=== PATIENT | male | born 1995 | race Caucasian/White ===

== ENCOUNTER 2019-06-13 13:07 | Emergency (ER) | payer BC ==
--- NOTE | 2019-06-13 14:11 | UC ---
Respiratory Complaint HPI - HPI Summary HPI Summary: 23 yo male presents requesting COVID testing. 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 Pt was last with this individual on a bus on 06/07. Currently pt has some sneezing and his chest feels tight, but has no other symptoms. Nothing OTC for symptoms. Denies fever, chills, sinus symptoms, sore throat, SOB, chest pain, abdominal pain, n/v. Does not smoke. - History of Current Complaint Stated Complaint: EXPOSURE Time Seen by Provider: 06/13/19 14:11 Hx Obtained From: Patient Onset/Duration: Sudden Onset Severity Initially: Mild Severity Currently: Mild Pain Intensity: 2 Pain Scale Used: 0-10 Numeric - Allergies/Home Medications Allergies/Adverse Reactions: Allergies Allergy/AdvReac Type Severity Reaction Status Date / Time No Known Allergies Allergy Verified 06/13/19 14:38 Home Medications: Home Medications NK [No Home Medications Reported] 06/13/19 [History Confirmed 06/13/19] PMH/Surg Hx/FS Hx/Imm Hx - Additional Past Medical History Additional PMH: None - Surgical History Surgical History: None - Family History Known Family History: Positive: None - Social History Occupation: Employed Full-time Lives: With Family Alcohol Use: None Substance Use Type: None Smoking Status (MU): Never Smoked Tobacco Review of Systems All Other Systems Reviewed And Are Negative: No Constitutional: Positive: Negative Skin: Positive: Negative Eyes: Positive: Negative ENT: Positive: Negative Respiratory: Positive: Other - Sneezing Cardiovascular: Positive: Negative Gastrointestinal: Positive: Negative Neurological/Mental Status: Positive: Negative Psychological: Positive: Negative Physical Exam - Summary Physical Exam Summary: GENERAL: NAD. WDWN. No pain distress. SKIN: No rashes, sores, lesions, or open wounds. HEENT: Head: AT/NC Eyes: EOM intact. Conjunctiva clear without inflammation or discharge. Ears: Hearing grossly normal. TMs intact, no bulging, erythema, or edema. Nose: Nasal mucosa pink and moist. NTTP maxillary and frontal sinus. Throat: Posterior oropharynx without exudates, erythema, or tonsillar enlargement. Uvula midline. NECK: Supple. Nontender. No lymphadenopathy. CHEST: CTAB. No r/r/w. No accessory muscle use. Breathing comfortably and in no distress. CV: RRR. Pulses intact. Cap refill <2seconds NEURO: Alert. PSYCH: Age appropriate behavior. Triage Information Reviewed: Yes Vital Signs: Vital Signs: Temp Pulse Resp BP Pulse Ox 99.5 F 96 16 150/71 99 06/13/19 14:34 06/13/19 14:34 06/13/19 14:34 06/13/19 14:34 06/13/19 14:34 Vital Signs Reviewed: Yes Respiratory Course/Dx - Course Course Of Treatment: Exam performed utilizing CDC recommended PPE. You are being tested for COVID-19. You need to quarantine yourself in a bedroom and bathroom only you are using. You may not leave the house. [facility] will contact you and notify of results when they are available. Advised to be on home isolation until cleared by the health department. Go to ED for increased SOB or any difficulty breathing - new or worsening symptoms. - Differential Dx/Diagnosis Provider Diagnosis: Viral syndrome Discharge ED - Sign-Out/Discharge Documenting (check all that apply): Patient Departure All imaging exams completed and their final reports reviewed: No Studies - Discharge Plan Condition: Stable Disposition: HOME Patient Education Materials: Viral Syndrome (ED) Referrals: No Primary Care Phys,NOPCP [Primary Care Provider] - Additional Instructions: You are being tested for COVID-19. You need to quarantine yourself in a bedroom and bathroom only you are using. You may not leave the house. [facility] will contact you and notify of results when they are available. Advised to be on home isolation until cleared by the health department. Go to ED for increased SOB or any difficulty breathing - new or worsening symptoms. - Billing Disposition and Condition Condition: STABLE Disposition: Home - Attestation Statements Provider Attestation: This patient was not seen by me. I was available for consult. Chart reviewed. JUAN CARLOS
[2019-06-13 14:38] VITALS: BP 150/71
== END 2019-06-13 15:00 | disposition home or self-care (01) ==
LOC: UCEAST 13:07
DX: B34.9 Viral infection, unspecified (principal)
CPT/HCPCS: 99201; G0463; U0002